=== PATIENT | male | born 1940 | race Asian ===

== ENCOUNTER → 2016-06-02 | Outpatient (CLI) | payer MEDICARE, OTHER ==
[~2016-06-02] MED LIST: ALLO300 PO; ATOR10TA69 PO; CARV6 PO; CLOP75TA32 PO; FOLI0.8T22 PO; GABA-529 PO; INSLAN SQ; LINA5TAB PO; SEVEC800 PO
[2016-06-02 13:37] LABS: HEMATOCRIT 33.3 % (41-53)
[2016-06-02 13:44] LABS: HEMOGLOBIN A1C 8.9 % (4.5-6.2)
[2016-06-02 13:56] LABS: ALBUMIN 3.4 g/dL (3.4-5.0); BILIRUBIN,TOTAL 0.4 mg/dL (0.1-1.0); CALCIUM, TOTAL 8.6 mg/dL (8.8-10.5); CHOL/HDL RATIO 2.3 (4.2-7.3); CREATININE 4.09 mg/dL (0.60-1.30); PHOSPHORUS 4.1 mg/dL (2.5-4.9); POTASSIUM 5.2 mmol/L (3.5-5.1); TOTAL PROTEIN, SERUM 7.3 g/dL (6.4-8.2)
[2016-06-02 14:01] LABS: VITAMIN B12 LEVEL 936 pg/mL (211-911)
[2016-06-03 12:10] LABS: IGG (IMMUNOFIXATION) 1019 mg/dL (700-1600)
[2016-06-03 15:31] LABS: ALBUMIN/GLOBULIN RAITO (PEP) 1.1 (0.7-1.7); ALPHA-1 GLOBULINS(PEP) 0.2 g/dL (0.0-0.4); ALPHA-2 GLOBULINS (PEP) 0.8 g/dL (0.4-1.0); BETA (PEP) 0.9 g/dL (0.7-1.3); M-SPIKE (PEP) Not Observed g/dL (Not Observed); TOTAL PROTEIN 6.3 g/dL (6.0-8.5)
== END | disposition home or self-care (01) ==
LOC: LABPV 10:57
PROVIDERS: ATTEND Internal Medicine Nephrology
DX: E11.22 Type 2 diabetes mellitus with diabetic chronic kidney disease (principal); I12.9 Hypertensive chronic kidney disease with stage 1 through stage 4 chronic kidney disease, or unspecified chronic kidney disease; N18.4 Chronic kidney disease, stage 4 (severe); R60.0 Localized edema; E78.5 Hyperlipidemia, unspecified
CPT/HCPCS: 82306; 82575; 82607; 82728; 82746; 82784; 83036; 83540; 83550; 83970; 84100; 84155; 84156; 84165; 84166; 84300; 85014; 85018; 86334; 86335

== ENCOUNTER → 2016-09-15 | Outpatient (CLI) | payer MEDICARE, OTHER ==
[2016-09-15 12:18] LABS: HEMATOCRIT 32.6 % (41-53); HEMOGLOBIN 10.9 g/dL (13.5-17.5)
[2016-09-15 12:24] LABS: CREATININE 4.78 mg/dL (0.60-1.30); PHOSPHORUS 4.3 mg/dL (2.5-4.9); POTASSIUM 5.2 mmol/L (3.5-5.1)
== END | disposition home or self-care (01) ==
LOC: LABPV 11:16
PROVIDERS: ATTEND Internal Medicine Nephrology
DX: E11.29 Type 2 diabetes mellitus with other diabetic kidney complication (principal); E78.5 Hyperlipidemia, unspecified; R60.0 Localized edema
CPT/HCPCS: 82306; 84100; 85014; 85018

== ENCOUNTER → 2016-10-30 | Outpatient (CLI) | payer MEDICARE, OTHER ==
[2016-10-30 13:48] LABS: HEMATOCRIT 34.1 % (41-53); HEMOGLOBIN 11.5 g/dL (13.5-17.5)
[2016-10-30 13:59] LABS: CALCIUM, TOTAL 8.5 mg/dL (8.8-10.5); CREATININE 3.97 mg/dL (0.60-1.30); PHOSPHORUS 4.5 mg/dL (2.5-4.9); POTASSIUM 5.2 mmol/L (3.5-5.1)
== END | disposition home or self-care (01) ==
LOC: LABPV 11:02
PROVIDERS: ATTEND Internal Medicine Nephrology
DX: E11.22 Type 2 diabetes mellitus with diabetic chronic kidney disease (principal); N18.4 Chronic kidney disease, stage 4 (severe); R60.0 Localized edema
CPT/HCPCS: 83970; 84100; 85014; 85018

== ENCOUNTER → 2017-01-12 | Outpatient (CLI) | payer MEDICARE ==
[2017-01-12 12:36] LABS: HEMATOCRIT 34.7 % (41-53); HEMOGLOBIN 11.7 g/dL (13.5-17.5)
[2017-01-12 12:39] LABS: HEMOGLOBIN A1C 9.2 % (4.5-6.2)
[2017-01-12 12:42] LABS: CALCIUM, TOTAL 8.9 mg/dL (8.8-10.5); CREATININE 4.37 mg/dL (0.60-1.30); POTASSIUM 5.2 mmol/L (3.5-5.1)
== END | disposition home or self-care (01) ==
LOC: LABPV 11:21
PROVIDERS: ATTEND Internal Medicine Nephrology
DX: E11.22 Type 2 diabetes mellitus with diabetic chronic kidney disease (principal); N18.4 Chronic kidney disease, stage 4 (severe); R60.0 Localized edema; E87.5 Hyperkalemia
CPT/HCPCS: 83036; 85014; 85018

== ENCOUNTER 2019-09-13 11:30 | Emergency (ER) | payer MEDICARE, OTHER ==
[~2019-09-13] VITALS: Ht 157.5 cm; Wt 75.0 kg
[~2019-09-13 11:30] MED LIST changes: +GABA-1216 PO; -GABA-529 PO; +SEVE800T17 PO; -SEVEC800 PO
[2019-09-13] MEDS ORDERED: FURO20 PO (11:46)
[2019-09-13 12:50] LABS: BASOPHILS % (AUTO) 0.3 % (0.0-2.0); EOSINOPHILS % (AUTO) 14.2 % (1.0-6.0); HEMATOCRIT 30.1 % (41-53); HEMOGLOBIN 10.1 g/dL (13.5-17.5); LYMPHOCYTES # (AUTO) 0.8 K/uL (1.0-4.8); LYMPHOCYTES % (AUTO) 7.3 % (22.0-44.0); MEAN CORPUSCULAR HEMOGLOBIN 33.7 pg (26.0-34.0); MEAN CORPUSCULAR HGB CONC 33.7 G/dL (31.0-37.0); MEAN CORPUSCULAR VOLUME 100 fL (80-100); MONOCYTES # (AUTO) 0.6 K/uL (0.1-1.0); MONOCYTES % (AUTO) 5.6 % (2.0-9.0); NEUTROPHILS # (AUTO) 7.6 K/uL (1.8-7.7); NEUTROPHILS % (AUTO) 72.6 % (40.0-70.0); PLATELET COUNT (AUTO) 197 K/uL (150-450); RED CELL DISTRIBUTION WIDTH 18.2 % (11.5-14.5)
[2019-09-13 13:08] LABS: CALCIUM, TOTAL 8.2 mg/dL (8.8-10.5); CREATININE 6.41 mg/dL (0.60-1.30); POTASSIUM 5.3 mmol/L (3.5-5.1)
[2019-09-13 13:15] LABS: ALBUMIN 3.2 g/dL (3.4-5.0); BILIRUBIN,TOTAL 0.4 mg/dL (0.1-1.0); TOTAL PROTEIN, SERUM 8.1 g/dL (6.4-8.2)
[2019-09-13 13:35] LABS: APPEARANCE,URINE CLOUDY (CLEAR); BILIRUBIN,URINE NEGATIVE (NEGATIVE); GLUCOSE, URINE (UA) 100 mg/dL (NEGATIVE); KETONES,URINE NEGATIVE (NEGATIVE); LEUKOCYTE ESTERASE ,URINE LARGE (NEGATIVE); NITRATE,URINE NEGATIVE (NEGATIVE); OCCULT BLOOD,URINE MODERATE (NEGATIVE); PROTEIN,URINE SEE CONFIRM (NEGATIVE); UROBILINOGEN,URINE 0.2 mg/dL (<=1.0)
[2019-09-13 13:45] LABS: BACTERIA,URINE Moderate /HPF (None Seen); SULFOSALICYLIC ACID,URINE 3+ (Negative); WBC,URINE >100 /HPF (0-5)
[2019-09-13 14:00] VITALS: BP 139/62
[2019-09-13] MEDS ORDERED: CIPROFLOXACIN HCL 250 MG TABLET PO ONE ×2 (14:00)
[2019-09-13] MEDS ORDERED: ATOR20TA86 PO (14:00)
== END 2019-09-13 14:30 | disposition home or self-care (01) ==
LOC: EMS 11:39
DX: N39.0 Urinary tract infection, site not specified (principal); I10 Essential (primary) hypertension; E11.9 Type 2 diabetes mellitus without complications; E78.00 Pure hypercholesterolemia, unspecified; Z79.899 Other long term (current) drug therapy
CPT/HCPCS: 87086